=== PATIENT | female | born 1925 | race Hispanic/Latino ===

== ENCOUNTER 2017-05-27 07:20 | Day surgery (SDC) | payer MEDICARE ==
[2017-05-27] MEDS ORDERED: ECOTRIN PO NR (07:49)
[2017-05-27] MEDS ORDERED: NACL 0.9% 500 ML 500 ML IV SCH (08:00)
[2017-05-27 08:43] LABS: INR 1.1 (0.87-1.13)
[2017-05-27 08:44] LABS: BUN/Creatinine Ratio 38; Blood Urea Nitrogen 15 mg/dL (7-17); Calcium 8.5 mg/dL (8.4-10.2); Hemolysis Index 6
[2017-05-27 09:16] LABS: Hemoglobin 10.9 gm/dl (10.1-14.3); Mean Corpuscular Hemoglobin 66 pg (28-32); Mean Corpuscular Volume 109 fl (79-97); Red Blood Count 1.65 M/mm3 (3.65-5.03); Red Cell Distribution Width 14.4 % (13.2-15.2)
[2017-05-27 09:24] LABS: Hematocrit 18.1 % (30.3-42.9)
[2017-05-27 09:25] LABS: Mean Corpuscular HGB Conc 61 % (30-34); Platelet Count 160 K/mm3 (140-440)
[2017-05-27] MEDS ORDERED: XYLOCAINE 2% INFILTRATI ONE (09:48)
[2017-05-27] MEDS ORDERED: NITROGLYCERIN SYRINGE 3 ML ONE (09:48)
[2017-05-27] MEDS ORDERED: CALAN ONE (09:48)
[2017-05-27] MEDS ORDERED: HEPARIN/NS 5000 UNIT/500ML(CATH LAB) 1,000 ML IR ONE (09:48)
[2017-05-27] MEDS ORDERED: HEPARIN 10,000 UNITS/10 ML ONE (09:48)
[2017-05-27] MEDS ORDERED: VERSED ONE (09:49)
[2017-05-27] MEDS ORDERED: SUBLIMAZE ONE (09:49)
[2017-05-27] MEDS ORDERED: PLAVIX ONE (10:54)
[2017-05-27] MEDS ORDERED: ALUM-MAG HYDROX-SIMETH 200-200-20MG/5ML ONE (11:00)
--- NOTE | 2017-05-27 11:31 | Cardiac Catherization Report ---
CARDIAC CATHETERIZATION REPORT REFERRING PHYSICIAN: Dr. Bayron Palomares. INDICATION FOR PROCEDURE: The patient is a pleasant 89-year-old female who presents here for a preoperative valve assessment, has seen Dr. Jay and Dr. Tavera. INDICATION FOR PROCEDURE: She is here for preoperative evaluation of possible severe , risk for TAVR. Risks, benefits, alternatives discussed at length prior to obtaining informed consent. PROCEDURE IN DETAIL: The patient was brought to [employer] course lab[employer] in a postabsorptive state, prepped in a sterile fashion. She has no radial pulse. We used the groin approach. 8 mL of 2% lidocaine used to anesthetize the groin. A 5-Maltese sheath used to cannulate the right common femoral artery via modified Seldinger technique. All exchanges performed to exchange a J-tip guidewire. JL3.5 catheter used to engage left main. No dampening or ventricularization. Cineangiography performed in all projections. JR4 catheter used to cross the aortic valve under fluoroscopic guidance. Left ventriculography performed in a 30 ABDI and 30 PAMELA projection via hand injection. Catheter flushed. Manual pullback performed with continuous pressure monitoring. Catheter used to engage the right coronary. No dampening or ventricularization. Cineangiography performed in all projections. Next, catheter removed from the body of wire, sheath removed. Manual pressure used to achieve hemostasis. DATA: LV pressure is 160-165 systolic. EDP of 20. Preserved LV function at 55-60%. Aortic pressure is 140 systolic. Iedh-xr-ohoh gradient is 25 mmHg, mean gradient is closer t o 20 mmHg. CORONARY ANATOMY: The entire coronary tree is very heavily calcified. The valvular annuli are heavily calcified. Left circumflex, courses AV groove. No significant disease. LAD is a moderate sized vessel, courses anterior intergroove, wraps around the apex, heavily calcified throughout 90% high mid LAD stenosis at the area of the septal trunk. Right coronary is moderate in size. No significant disease. This is a right dominant system. CONCLUSIONS: 1. Severe calcific coronary tree with 90% proximal LAD stenosis. Dual ostia of the LAD and left circumflex noted. 2. Probable mild to moderate with a peak gradient of 25 and mean of approximately 20 mmHg, preserved left ventricular systolic performance, estimated ejection fraction of 55-60%. At this point, we will stop the case. I discussed with Dr. Tavera and Dr. Palomares. Unclear if her valve is truly symptomatic or she has mild to moderate aortic stenosis, which is ambient. LAD disease is heavily calcified. We will load her with Plavix. We will set her up for elective PCI of LAD with rotational atherectomy at [facility] later this week. Standard groin care. Results of procedure explained to the patient and family and at that point, we will repeat an echocardiogram and reconsider aortic valve disease. Plan of care discussed at length with the patient and family. All questions and concerns were addressed. ADDENDUM: Moderate sedation was directly supervised with me with the administration of fentanyl and Versed started at approximately 10:00 a.m. and ended at 10:45 a.m. No complications noted. JOB# [id number] PAVEL/JOHANA
[2017-05-27 12:11] LABS: Hematocrit 21.7 % (30.3-42.9); Hemoglobin 8.9 gm/dl (10.1-14.3); Mean Corpuscular Hemoglobin 47 pg (28-32); Mean Corpuscular Volume 114 fl (79-97)
[2017-05-27 12:12] LABS: Mean Corpuscular HGB Conc 41 % (30-34); Red Cell Distribution Width 14.2 % (13.2-15.2)
[2017-05-27 12:13] LABS: Platelet Count 181 K/mm3 (140-440)
[2017-05-27 13:17] LABS: Anisocytosis 1+; Basophils % (Manual) 0 % (0.0-1.8); Eosinophils % (Manual) 0 % (0.0-4.3); Total Cells Counted 100
[2017-05-27 13:18] LABS: Platelet Estimate Consistent w Auto
--- NOTE | 2017-05-27 13:28 | Short Stay Summary ---
Short Stay Documentation Date of service: 05/27/17 - History H&P: obtained from office - Allergies and Medications Current Medications: Allergies No Known Allergies Allergy (Unverified 06/10/16 10:13) Home Medications Medication Instructions Recorded Confirmed Last Taken Type Ascorbic Acid [Vitamin C] 100 mg PO DAILY 05/26/17 05/26/17 05/26/17 History 100mg Cholecalciferol (Vitamin D3) 1,000 unit PO DAILY 05/26/17 05/26/17 05/26/17 History [Vitamin D3] 1000units Colchicine [Colcrys] 0.6 mg PO DAILY 05/26/17 05/26/17 05/26/17 History 0.6mg Dexlansoprazole (Nf) [Dexilant 60 mg PO DAILY 05/26/17 05/26/17 05/26/17 History (Nf)] 60mg Multiple Vitamin TAB (Theragran) 1 tab PO DAILY 05/26/17 05/26/17 05/26/17 History 1 Clopidogrel [Plavix] 75 mg PO QDAY #30 tablet 05/27/17 Unknown Rx Active Medications Sodium Chloride (Nacl 0.9% 500 Ml) 500 mls @ 50 mls/hr IV DIRECT JOSE Stop: 05/27/17 17:59 - Brief post op/procedure progress note Date of procedure: 05/27/17 Pre-op diagnosis: aortic stenosis Procedure: Left heart cath. - Hospital course Hospital course: Please see dictated cath report. - Disposition Condition at discharge: Good Disposition: [id number] TO HOME OR SELFCARE - Discharge Diagnoses (1) Aortic stenosis Status: Chronic (2) Coronary artery disease Status: Chronic Short Stay Discharge Plan Activity: advance as tolerated Weight Bearing Status: Weight Bear as Tolerated Diet: low fat, low cholesterol Wound: keep clean and dry Forms: CardCath PCI D/C Instructions Prescriptions: Clopidogrel [Plavix] 75 mg PO QDAY #30 tablet
[2017-05-27 14:54] VITALS: BP 124/66
== END 2017-05-27 15:30 | disposition home or self-care (01) ==
LOC: CATHLABREC 07:20
PROVIDERS: ATTEND Internal Medicine
DX: I35.9 Nonrheumatic aortic valve disorder, unspecified (principal); I25.10 Atherosclerotic heart disease of native coronary artery without angina pectoris; Z79.01 Long term (current) use of anticoagulants
CPT/HCPCS: 36415; 80048; 85007; 85025; 85610; 85730; 93005; 93010; 93458; 99156; 99157; C1894; J1644; J2250; J3010; J7040; Q9967